=== PATIENT | male | born 1965 | race Two or more races ===

== ENCOUNTER 2018-10-14 09:40 | Emergency (ER) | payer OTHER ==
[~2018-10-14] VITALS: Ht 162.6 cm; Wt 104.8 kg
[2018-10-14] MEDS ORDERED: INTESTINEX680 M1 PO (13:13)
[2018-10-14] MEDS ORDERED: VISTARIL25 MG PO (13:13)
[2018-10-14] MEDS ORDERED: COZAAR50 MG PO (13:13)
[2018-10-14] MEDS ORDERED: MULTI VITAMIN1 EACH PO (13:13)
== END 2018-10-14 14:11 | disposition home or self-care (01) ==
LOC: ER 09:40
DX: R42 Dizziness and giddiness (principal); I10 Essential (primary) hypertension; F06.4 Anxiety disorder due to known physiological condition